=== PATIENT | male | born 1960 | race Caucasian/White ===

== ENCOUNTER → 2018-06-05 | Day surgery (SDC) | payer OTHER ==
[~2018-06-05] MED LIST: Lactated Ringers 1,000 ML IV SCH; Propofol 200 MG/20 ML SDV IV ONE
[2018-06-05 12:22] VITALS: BP 136/81
--- NOTE | 2018-06-05 14:49 | OR ---
DATE OF OPERATION: 06/05/2018 PREOPERATIVE DIAGNOSIS: 1. MELENA. 2. EPIGASTRIC PAIN. POSTOPERATIVE DIAGNOSIS: 1. MELENA. 2. EPIGASTRIC PAIN. SURGEON: Joaquin Lujan MD PROCEDURE: 1. EGD WITH BIOPSIES X4, RAYMOND. 2. FULL-LENGTH COLONOSCOPY. ANESTHESIA: SCAFFOLD SETTER due to GERD. COMPLICATIONS: None. SPECIMEN: 1. Antral biopsy x2. 2. Distal esophageal biopsy x2. 3. Antral RAYMOND. FINDINGS: 1. Full-length EGD. 2. [id number] antral gastritis. 3. GERD with Whitlock's esophagus. 4. Full-length colonoscopy. 5. Mild sigmoid diverticulosis. RECOMMENDATIONS: The patient will be placed on appropriate proton pump therapy and we will have close followup after path reports are back. INDICATIONS: The patient presented to my office with complaints of melenic stools at times and epigastric pain. He does occasionally have bright red blood per rectum, so we elected to proceed with both upper and lower endoscopy. DESCRIPTION OF PROCEDURE: The patient was prepped and draped, placed in the left lateral decubitus position. A lubricated Olympus gastroscope was inserted over a bit and easily intubated in the esophagus. The esophageal lining was benign until its most distal portion. The Z-line was crisp around 39 cm. There was no gross hernia present, but there was spontaneous GERD, and there was one short segment of Whitlock's documented with pictures. We did two biopsies of the leading edge of this. The scope was advanced into the stomach, through the pylorus into the second portion of duodenum. This and the duodenal bulb were benign. The scope was brought back into the stomach and retroflexed. The upper fundus and cardia were unremarkable. Upon straightening, the patient had diffuse antral gastritis without any ulceration or erosion. Two biopsies were taken along with a RAYMOND. Air was then suctioned from the stomach and the scope was removed without complication. A lubricated Olympus colonoscope was then inserted and with relative ease advanced to the cecum. We were able to directly visualize the ileocecal valve and appendiceal orifice. The bowel prep was adequate. Upon withdrawal of the scope, the cecum, ascending and transverse colons were completely benign. No signs of any lesions in the descending colon. In the sigmoid area, the patient had some very mild diverticular disease at the mid to distal portion of the sigmoid and into the rectosigmoid junction, without any inflammatory changes. Throughout the entire colon, I could find no signs of any polyps, mass, ulceration, or bleeding sites. No vascular abnormalities or signs of colitis. The rectal vault appeared benign. Upon retroflexion, the patient had prominent internal vascular tissue, but no active bleeding. Air was then suctioned, scope removed without complication. ELYSSA/CRYSTAL /[id number]
== END ==
LOC: CC.SDS 10:12
PROVIDERS: ATTEND Family Medicine
DX: K29.71 Gastritis, unspecified, with bleeding (principal); K21.9 Gastro-esophageal reflux disease without esophagitis; K22.70 Barrett's esophagus without dysplasia; K57.31 Diverticulosis of large intestine without perforation or abscess with bleeding
CPT/HCPCS: 43239; 45378; 87081; J2704; J7120

== ENCOUNTER 2019-05-12 17:05 | Emergency (ER) | payer OTHER ==
[2019-05-12] MEDS ORDERED: predniSONE 20 MG Tab PO ONE (17:06)
[2019-05-12] MEDS ORDERED: Ketorolac 10 MG Tab PO ONE (17:06)
--- NOTE | 2019-05-12 17:33 | EDM.PDOC ---
ED HPI GENERAL MEDICAL PROBLEM - General Chief Complaint: General Stated Complaint: back/right leg pain Time Seen by Provider: 05/12/19 17:20 Source of Information: Reports: Patient History Limitations: Reports: No Limitations - History of Present Illness INITIAL COMMENTS - FREE TEXT/NARRATIVE: in with c/o right lower back, right ant thigh pain and anxiety, pts back and leg problems started last night, no injury or trauma, feels like he has cramping in his muscles and the anxiety started this afternoon, no cp, pressure or heaviness, no palpitation or irregular heart beats, no calf pain, redness or swelling, no abd pain, no nv, no fever or chills Onset: Gradual Duration: Day(s): (as above) Location: Reports: Lower Extremity, Right Quality: Reports: Ache (cramping) Severity: Moderate Improves with: Reports: None Worsens with: Reports: None 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 - Related Data Allergies Allergy/AdvReac Type Severity Reaction Status Date / Time No Known Allergies Allergy Verified 06/05/18 10:28 Home Meds: Home Meds Carboxymethylcellulos/Glycerin [Lubricant 0.5-0.9% Eye Drops] 1 drop OP DAILY [History] Pantoprazole [ProTONIX] 40 mg PO DAILY 06/05/18 [History] Saw/Vit E/Sod Maria A/Lyc/Beta/Pyg [Prostate Health Caplet] 2 tab PO DAILY 06/05/18 [History] Ketorolac [Toradol] 10 mg PO TID PRN 5 Days #12 tab 05/12/19 [Rx] predniSONE [Prednisone] 50 mg PO DAILY 5 Days #5 tablet 05/12/19 [Rx] Past Medical History - Past Health History Medical/Surgical History: Denies Medical/Surgical History Social & Family History - Family History Cardiac: Reports: Hypertension - Alcohol Use Alcohol Use History: Yes Alcohol Use Frequency: Rarely - Living Situation & Occupation Occupation: Employed ED ROS GENERAL - Review of Systems Review Of Systems: See Below Constitutional: Denies: Fever, Chills HEENT: Reports: No Symptoms Respiratory: Reports: No Symptoms. Denies: Shortness of Breath Cardiovascular: Reports: No Symptoms. Denies: Chest Pain, Edema, Lightheadedness, Palpitations, Syncope GI/Abdominal: Reports: No Symptoms. Denies: Abdominal Pain, Nausea, Vomiting : Reports: No Symptoms Musculoskeletal: Reports: Muscle Pain (as above). Denies: Neck Pain, Shoulder Pain, Back Pain Skin: Reports: No Symptoms. Denies: Bruising, Rash, Erythema Neurological: Reports: No Symptoms. Denies: Confusion, Dizziness, Headache, Numbness, Tingling, Trouble Speaking, Difficulty Walking, Weakness, Change in Speech, Gait Disturbance Psychiatric: Reports: Anxiety ED EXAM, GENERAL - Physical Exam Exam: See Below Exam Limited By: No Limitations General Appearance: Alert, WD/WN, Anxious Ears: Normal External Exam Nose: Normal Inspection Throat/Mouth: Normal Inspection, Normal Voice, No Airway Compromise Head: Atraumatic, Normocephalic Neck: Normal Inspection, Supple, Non-Tender, Full Range of Motion Respiratory/Chest: No Respiratory Distress, Lungs Clear, Normal Breath Sounds, Chest Non-Tender Cardiovascular: Normal Peripheral Pulses, Regular Rate, Rhythm, No Murmur Peripheral Pulses: 2+: Radial (L) GI/Abdominal: Soft, Non-Tender Back Exam: Normal Inspection, Full Range of Motion, Other (pain over the right sciatica area with palpation ). No: CVA Tenderness (L), CVA Tenderness (R), Decreased Range of Motion, Muscle Spasm, Paraspinal Tenderness, Vertebral Tenderness Extremities: Normal Inspection, Normal Range of Motion, No Pedal Edema, Normal Capillary Refill, Other (ant thigh tenderness with palpation ). No: Redness Neurological: Alert, Oriented, Normal Cognition, Normal Gait, No Motor/Sensory Deficits Psychiatric: Normal Mood, Anxious Skin Exam: Warm, Intact, Normal Color, No Rash. No: Ecchymosis, Erythema Course - Vital Signs Text/Narrative:: the pt was given ativan 1mg IM, the pt was reassessed and is feeling much better , I suspect the pt has sciatica and anxiety, the pt dangelo be given Toradol 10mg tid prn and prednisone 50mg qd x 5 days, will f/u with pcp next week Last Recorded V/S: Last Vital Signs Temp 36.1 C 05/12/19 17:22 Pulse 88 05/12/19 18:57 Resp 18 05/12/19 18:57 BP 154/85 H 05/12/19 18:57 Pulse Ox 97 05/12/19 18:57 - Orders/Labs/Meds Meds: Medications Discontinued Medications Generic Name Dose Route Start Last Admin Trade Name Freq PRN Reason Stop Dose Admin Ketorolac Tromethamine 2 packet 05/12/19 18:52 Take Home: Ketorolac 10 Mg, 4 Tab Pack PO 05/12/19 18:53 ONETIME ONE Lorazepam 1 mg 05/12/19 17:26 05/12/19 18:08 Ativan IM 05/12/19 17:27 1 mg ONETIME ONE Administration Prednisone 2 packet 05/12/19 18:52 Take Home: Prednisone 20 Mg, 2 Tab Pack PO 05/12/19 18:53 ONETIME ONE Departure - Departure Time of Disposition: 18:47 Disposition: Home, Self-Care 01 Condition: Good Clinical Impression: Anxiety, Right sided sciatica - Discharge Information *PRESCRIPTION DRUG MONITORING PROGRAM REVIEWED*: Not Applicable *COPY OF PRESCRIPTION DRUG MONITORING REPORT IN PATIENT AURELIO: Not Applicable Prescriptions: Ketorolac [Toradol] 10 mg PO TID PRN 5 Days #12 tab PRN Reason: Pain (Moderate 4-6) predniSONE [Prednisone] 50 mg PO DAILY 5 Days #5 tablet Instructions: Generalized Anxiety Disorder, Adult, Sciatica, [id number] Referrals: Joaquin Lujan MD [Primary Care Provider] - Forms: ED Department Discharge Additional Instructions: rest increase fluids Toradol 10mg 3 x a day as needed for pain prednisone 50mg 1 x a day for 5 days follow up with your family doctor this week, call Friday for an appointment time return to ER sooner if worse or problems - Problem List & Annotations (1) Anxiety SNOMED Code(s): 51278898 Code(s): F41.9 - ANXIETY DISORDER, UNSPECIFIED Status: Acute Priority: Medium Current Visit: Yes (2) Right sided sciatica SNOMED Code(s): 90899882 Code(s): M54.31 - SCIATICA, RIGHT SIDE Status: Acute Priority: Medium Current Visit: Yes - Problem List Review Problem List Initiated/Reviewed/Updated: Yes - Assessment/Plan Plan: as above
[2019-05-12] MEDS: LORazepam 2 MG/ML Syringe IM ONE (18:08)
[2019-05-12 18:58] VITALS: BP 154/85; PULSE 88
[2019-05-12] MEDS: Take Home: Ketorolac 10 MG Tab, 4 Tab Pack PO ONE (19:14)
[2019-05-12] MEDS: Take Home: predniSONE 20 MG, 2 Tab Pack PO ONE (19:14)
== END 2019-05-12 19:05 | disposition home or self-care (01) ==
LOC: CC.ED 17:05
DX: M54.41 Lumbago with sciatica, right side (principal); F41.9 Anxiety disorder, unspecified
CPT/HCPCS: 96372; 99283; A9270; J2060

== ENCOUNTER 2020-02-15 02:18 | Emergency (ER) | payer OTHER ==
[2020-02-15] MEDS ORDERED: Ketorolac 60 MG/2 ML SDV IM ONE (02:27)
[2020-02-15 02:32] VITALS: BP 139/85; PULSE 79
--- NOTE | 2020-02-15 02:55 | EDM.PDOC ---
ED HPI GENERAL MEDICAL PROBLEM - General Chief Complaint: Back Pain or Injury Stated Complaint: BACK PAIN Time Seen by Provider: 02/15/20 02:48 Source of Information: Reports: Patient History Limitations: Reports: No Limitations - History of Present Illness INITIAL COMMENTS - FREE TEXT/NARRATIVE: Barney Michael is a 59 yo male who presents to the ED with c/o right sided low back pain. Reports it radiates around to front side. Does not radiate down his leg. Denies any numbness or tingling. No loss of bowel/bladder. No dysuria, hematuria, or flank pain. No injury to area. He is able to ambulate, but is slow and cautious with movements. Reports he had same thing back in April. Did do PT for it. He reports pain started Friday and has worsened since. He has been taking 400 mg ibuprofen for it without relief. Reports he went to the chiropractor earlier today, felt like pain was improving, but pain has now worsened since and got to a point where he couldn't tolerate it tonight. Rates pain 9/10 at rest and 10/10 with movement. 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 Lower Back Pain Score (Numeric/FACES): 9 - Related Data Allergies Allergy/AdvReac Type Severity Reaction Status Date / Time lactose Allergy Abdominal Verified 02/15/20 02:20 Pain Home Meds: Home Meds Ibuprofen 400 mg PO ASDIRECTED PRN 05/12/19 [History] Cyclobenzaprine [Flexeril] 10 mg PO TID PRN #20 tab 02/15/20 [Rx] Ketorolac [Toradol] 10 mg PO Q6H PRN #20 tab 02/15/20 [Rx] predniSONE [Prednisone] 40 mg PO DAILY 5 Days #10 tablet 02/15/20 [Rx] Past Medical History - Past Health History Medical/Surgical History: Denies Medical/Surgical History Musculoskeletal History: Reports: Back Pain, Chronic - Past Surgical History Musculoskeletal Surgical History: Reports: None Social & Family History - Family History Family Medical History: Noncontributory Cardiac: Reports: Hypertension - Caffeine Use Caffeine Use: Reports: None - Living Situation & Occupation Occupation: Employed ED ROS GENERAL - Review of Systems Review Of Systems: Comprehensive ROS is negative, except as noted in HPI. ED EXAM,LOWER BACK PAIN/INJURY - Physical Exam Exam: See Below Exam Limited By: No Limitations General Appearance: Alert, WD/WN, Mild Distress Back Exam: Decreased Range of Motion (decreased flexion & R) & L) rotation lumbar spine), Muscle Spasm (paraspinal muscles, lumbar spine). No: CVA Tenderness (L), CVA Tenderness (R), Paraspinal Tenderness, Vertebral Tenderness Extremities: Normal Inspection, Normal Range of Motion, Non-Tender, No Pedal Edema, Normal Capillary Refill Neurological: Alert, Normal Mood/Affect, Normal Dorsiflexion, CN II-XII Intact, Normal Plantar Flexion, Normal Gait (slow cautious gait), Normal Reflexes, No Motor/Sensory Deficits, Oriented x 3. No: Straight Leg Raise (L), Straight Leg Raise (R) Psychiatric: Anxious Skin Exam: Warm, Dry, Intact, Normal Color, No Rash Course - Vital Signs Last Recorded V/S: Last Vital Signs Temp 98.1 F 02/15/20 02:20 Pulse 79 02/15/20 02:20 Resp 16 02/15/20 02:20 BP 139/85 02/15/20 02:20 Pulse Ox 98 02/15/20 02:20 - Orders/Labs/Meds Meds: Medications Discontinued Medications Generic Name Dose Route Start Last Admin Trade Name Freq PRN Reason Stop Dose Admin Ketorolac Tromethamine 60 mg 02/15/20 02:27 02/15/20 02:38 Toradol IM 02/15/20 02:28 60 mg ONETIME ONE Administration Orphenadrine Citrate 60 mg 02/15/20 02:27 02/15/20 02:40 Norflex IM 02/15/20 02:28 60 mg ONETIME ONE Administration Departure - Departure Time of Disposition: 03:25 Disposition: Home, Self-Care 01 Condition: Good Clinical Impression: Right sided sciatica - Discharge Information *PRESCRIPTION DRUG MONITORING PROGRAM REVIEWED*: Not Applicable *COPY OF PRESCRIPTION DRUG MONITORING REPORT IN PATIENT AURELIO: Not Applicable Prescriptions: Cyclobenzaprine [Flexeril] 10 mg PO TID PRN #20 tab PRN Reason: Pain predniSONE [Prednisone] 40 mg PO DAILY 5 Days #10 tablet Ketorolac [Toradol] 10 mg PO Q6H PRN #20 tab PRN Reason: Pain Instructions: Sciatica, [id number] Referrals: PCP,None [Primary Care Provider] - Forms: ED Department Discharge Additional Instructions: - Toradol 1 tablet every 6 hours as needed for pain - Flexeril 1 tablet every 8 hours as needed for pain (muscle relaxer). This med may make you sleepy - Prednisone 40 mg daily x 5 days - Ice/heat to affected area as needed - Continue stretches - PT if no improvement - Follow up with PCP for recheck if symptoms worsen or do not seem to be improving - Return to ED for emergent needs Sepsis Event Note (ED) - Evaluation Sepsis Screening Result: No Definite Risk - Problem List & Annotations (1) Right sided sciatica SNOMED Code(s): 19819679 Code(s): M54.31 - SCIATICA, RIGHT SIDE Status: Acute Priority: Medium - Assessment/Plan Assessment:: Right Sided Sciatica Plan: 59 yo male presents to ED with significant back pain. Did have similiar issue back in April, that improved with meds and PT. Reports pain has been worsening since Friday. Did try chiropractor, which provided relief initially, but has worsened overnight. Presented with c/o 10/10 right sided low back pain. Was given 60 mg IM Norflex and 60 mg IM toradol. After approximately 30 minutes, patient reported improvement in pain. At time of discharge, pain improved to 2/1 0. He was ambulating without difficulty. He is sent home with PO home medications, Toradol, Flexeril, and prednisone. Is advised to follow up with his PCP for recheck if symptoms worsen or do not seem to be improving. Patient discharged in satisfactory condition.
== END 2020-02-15 03:25 | disposition home or self-care (01) ==
LOC: CC.ED 02:18
DX: M54.41 Lumbago with sciatica, right side (principal); Z91.011 Allergy to milk products
CPT/HCPCS: 96372; 99283; J1885; J2360

== ENCOUNTER 2020-08-18 15:01 | Emergency (ER) | payer OTHER ==
--- NOTE | 2020-08-18 15:53 | EDM.PDOC ---
ED HPI GENERAL MEDICAL PROBLEM - General Chief Complaint: Abdominal Pain Stated Complaint: abdominal pain Time Seen by Provider: 08/18/20 15:11 Source of Information: Reports: Patient History Limitations: Reports: No Limitations - History of Present Illness INITIAL COMMENTS - FREE TEXT/NARRATIVE: This patient is a 60 year old male that presents to the ER. Patient reports that started at about noon today with right abdominal pain and right lower back pain. Patient reports having nausea, vomiting, and diarrhea today. Patient reports starting ans stopping of urine stream last night. Patient denies singh, neck pain, chest pain, shortness of breath, fever, testicle pain, penile pain. Patient reports after RN inserted saline lock, his pain completely resolved. He thought he was given something for pain, I informed him he was not. Onset: Today Onset Date: 08/18/20 Onset Time: 12:00 Location: Reports: Abdomen, Back Quality: Reports: Sharp Severity: Mild Improves with: Reports: None Worsens with: Reports: None Associated Symptoms: Reports: Diaphoresis, Nausea/Vomiting. Denies: Confusion, Chest Pain, Cough, cough w sputum, Fever/Chills, Headaches, Loss of Appetite, Malaise, Rash, Seizure, Shortness of Breath, Syncope, Weakness Right Lower Abdominal Pain Score (Numeric/FACES): 6 - Related Data Allergies Allergy/AdvReac Type Severity Reaction Status Date / Time lactose Allergy Abdominal Verified 08/18/20 15:06 Pain Home Meds: Home Meds Ibuprofen 400 mg PO ASDIRECTED PRN 05/12/19 [History] Ketorolac [Toradol] 10 mg PO Q6H PRN #20 tab 08/18/20 [Rx] Lifitegrast [Xiidra] 1 drop EYEBOTH BID 08/18/20 [History] Ondansetron [Zofran ODT] 4 mg PO Q6H PRN #12 tab.dis 08/18/20 [Rx] Tamsulosin HCl [Flomax] 0.4 mg PO DAILY #7 cap.er.24h 08/18/20 [Rx] Past Medical History - Past Health History Medical/Surgical History: Denies Medical/Surgical History Musculoskeletal History: Reports: Back Pain, Chronic - Infectious Disease History Infectious Disease History: Reports: None - Past Surgical History GI Surgical History: Reports: Colonoscopy Musculoskeletal Surgical History: Reports: None Social & Family History - Family History Family Medical History: No Pertinent Family History Cardiac: Reports: Hypertension - Tobacco Use Tobacco Use Status *Q: Never Tobacco User - Caffeine Use Caffeine Use: Reports: Coffee, Soda - Recreational Drug Use Recreational Drug Use: No - Living Situation & Occupation Occupation: Employed ED ROS GENERAL - Review of Systems Review Of Systems: See Below Constitutional: Reports: Diaphoresis. Denies: Fever, Chills, Malaise, Weakness, Fatigue HEENT: Reports: No Symptoms Respiratory: Reports: No Symptoms Cardiovascular: Reports: No Symptoms Endocrine: Reports: No Symptoms GI/Abdominal: Reports: Abdominal Pain, Diarrhea, Nausea, Vomiting. Denies: Constipation : Reports: Other (starting and stopping of urinary stream. Right flank pain) Musculoskeletal: Reports: No Symptoms Skin: Reports: No Symptoms Neurological: Reports: No Symptoms Psychiatric: Reports: No Symptoms Hematologic/Lymphatic: Reports: No Symptoms ED EXAM, GI/ABD - Physical Exam Exam: See Below Exam Limited By: No Limitations General Appearance: Alert, WD/WN, No Apparent Distress Eyes: Bilateral: Normal Appearance Ears: Normal External Exam, Normal Canal, Hearing Grossly Normal, Normal TMs Nose: Normal Inspection, Normal Mucosa, No Blood Throat/Mouth: Normal Inspection, Normal Lips, Normal Teeth, Normal Gums, Normal Oropharynx, Normal Voice, No Airway Compromise Head: Atraumatic, Normocephalic Neck: Normal Inspection, Supple, Non-Tender, Full Range of Motion Respiratory/Chest: No Respiratory Distress, Lungs Clear, Normal Breath Sounds, No Accessory Muscle Use, Chest Non-Tender Cardiovascular: Normal Peripheral Pulses, Regular Rate, Rhythm, No Edema, No Gallop, No JVD, No Murmur, No Rub GI/Abdominal Exam: Normal Bowel Sounds, Soft, Non-Tender, No Organomegaly, No Distention, No Abnormal Bruit, No Mass, Pelvis Stable (Male) Exam: Deferred Rectal (Males) Exam: Deferred Back Exam: Normal Inspection, Full Range of Motion. No: CVA Tenderness (L), CVA Tenderness (R) Extremities: Normal Inspection, Normal Range of Motion, Non-Tender, No Pedal Edema, Normal Capillary Refill Neurological: Alert, Oriented, Normal Cognition, Normal Gait, No Motor/Sensory Deficits Psychiatric: Normal Affect, Normal Mood Skin Exam: Warm, Dry, Intact, Normal Color, No Rash Lymphatic: No Adenopathy Course - Vital Signs Last Recorded V/S: Last Vital Signs Temp 99.8 F 08/18/20 17:21 Pulse 93 08/18/20 17:21 Resp 20 08/18/20 17:21 BP 150/88 H 08/18/20 17:21 Pulse Ox 97 08/18/20 17:21 - Orders/Labs/Meds Orders: Active Orders 24 hr Category Date Time Status Abdomen Pelvis wo Cont [CT] Stat Exams 08/18/20 16:47 Taken Labs: Laboratory Tests 08/18/20 08/18/20 08/18/20 Range/Units 15:49 16:00 16:00 WBC 8.1 (5.0-10.0) 10^3/uL RBC 5.31 (4.50-6.00) 10^6/uL Hgb 16.2 (14.0-18.0) g/dL Hct 46.2 (40.0-54.0) % MCV 87.0 (82.0-94.0) fL MCH 30.5 (27.0-32.0) pg MCHC 35.1 (33.0-38.0) g/dL RDW Coeff of Jose 13.0 (11.0-15.0) % Plt Count 243 (150-400) 10^3/uL Neut % (Auto) 75.3 (35-85) % Lymph % (Auto) 15.3 (10-55) % Vilas % (Auto) 8.6 (0-16) % Eos % (Auto) 0.6 (0-5) % Baso % (Auto) 0.2 (0-3) % Neut # (Auto) 6.09 (1.80-7.00) 10^3/uL Lymph # (Auto) 1.24 (1.00-4.80) 10^3/uL Vilas # (Auto) 0.70 (0.00-0.80) 10^3/uL Eos # (Auto) 0.05 (0.00-0.45) 10^3/uL Baso # (Auto) 0.02 10^3/uL Sodium 144 (136-145) mEq/L Potassium 4.1 (3.5-5.0) mEq/L Chloride 104 (98-106) mEq/L Carbon Dioxide 30 (21-32) mmol/L BUN 21 H (7-18) mg/dL Creatinine 1.5 H (0.7-1.3) mg/dL Est Cr Clr Drug Dosing 51.93 mL/min Estimated GFR (MDRD) 48 L (>=60) mL/min Glucose 155 H D (75-99) mg/dL Calcium 9.2 (8.4-10.1) mg/dL Total Bilirubin 1.1 H (0.0-1.0) mg/dL AST 16 (15-37) U/L ALT 29 (12-78) U/L Alkaline Phosphatase 85 (46-116) U/L Lactate Dehydrogenase 158 (100-190) U/L Creatine Kinase 120 (35-232) U/L Troponin I < 0.017 (0.00-0.06) ng/mL C-Reactive Protein < 0.2 L (0.2-0.8) mg/dL Total Protein 7.8 (6.4-8.2) g/dL Albumin 4.3 (3.4-5.0) g/dL Amylase 60 (25-115) U/L Lipase 87 (73-393) U/L Urine Color Yellow (YELLOW) Urine Appearance Clear (CLEAR) Urine pH 5.5 (4.5-8.0) Ur Specific [place] >= 1.030 H (1.003-1.020) Urine Protein 30 H (NEGATIVE) mg/dL Urine Glucose (UA) Negative (NEGATIVE) mg/dL Urine Ketones Negative (NEGATIVE) mg/dL Urine Occult Blood Large H (NEGATIVE) Urine Nitrite Negative (NEGATIVE) Urine Bilirubin Negative (NEGATIVE) Urine Urobilinogen 0.2 (0.2-1.0) EU/dL Ur Leukocyte Esterase Negative (NEGATIVE) Urine RBC 30-40 H (0-5) /HPF Urine WBC Not seen (0-5) /HPF Urine Mucus Few H (NOT SEEN) /HPF Meds: Medications Discontinued Medications Generic Name Dose Route Start Last Admin Trade Name Freq PRN Reason Stop Dose Admin Hydromorphone HCl 1 mg 08/18/20 17:39 08/18/20 17:46 Dilaudid IVPUSH 08/18/20 17:40 1 mg ONETIME ONE Administration Sodium Chloride 1,000 mls @ 1,000 mls/hr 08/18/20 16:46 08/18/20 16:51 Normal Saline IV 08/18/20 17:45 1,000 mls/hr .BOLUS ONE Administration Ketorolac Tromethamine 30 mg 08/18/20 18:23 08/18/20 18:50 Toradol IVPUSH 08/18/20 18:24 30 mg ONETIME ONE Administration Ketorolac Tromethamine 1 packet 08/18/20 18:44 Take Home: Ketorolac 10 Mg, 4 Tab Pack PO 08/18/20 18:45 ONETIME ONE Morphine Sulfate 4 mg 08/18/20 16:46 08/18/20 16:52 Morphine IVPUSH 08/18/20 16:47 4 mg ONETIME ONE Administration Ondansetron HCl 4 mg 08/18/20 16:46 08/18/20 16:54 Zofran IVPUSH 08/18/20 16:47 4 mg NOW STA Administration Ondansetron HCl 4 mg 08/18/20 17:39 08/18/20 17:44 Zofran IVPUSH 08/18/20 17:40 4 mg NOW STA Administration Ondansetron HCl 1 packet 08/18/20 18:44 Take Home: Ondansetron Odt 4 Mg, 2 Tab Pack PO 08/18/20 18:45 ONETIME ONE Oxycodone/Acetaminophen 3 packet 08/18/20 18:44 Take Home: Acetaminophen/Oxycodon, 2 Tab Pack PO 08/18/20 18:45 ONETIME ONE Tamsulosin HCl 0.4 mg 08/18/20 18:23 08/18/20 18:50 Flomax PO 08/18/20 18:24 0.4 mg ONETIME ONE Administration - Radiology Interpretation Free Text/Narrative:: CT abd/Pelvis without contrast: obstructing 5mm stone in hte right proximal ureter with minimal right hydronephrosis. CT Results Date: 08/18/20 CT Results Time: 17:40 - Re-Assessments/Exams Free Text/Narrative Re-Assessment/Exam: 08/18/20 16:40 Patient now reports 10/10 pain to the right flank. Medications ordered. Reviewed labs, will renal stone protocol. 08/18/20 17:45 Patient reported his pain had improved after previous medication, was 2/10, but now is 10/10 again. More pain medication ordered. 08/18/20 18:36 I called and spoke to [facility] to see if has urology director of slot operations per patient request for that facility. He reports they had a nice commercial for urology that he saw on the TV. They did not have urology director of slot operations, so I called [facility] per his 2nd request. I spoke to urologist Dr. Crabtree. He reports to give the patient Toradol, Flomax, and discharge home. Patient may pass on home, will give patient that chance to do so. Patient agrees with this treatment plan. Patient educated when to return to the ER. Patient will see urology in 1 week. Departure - Departure Time of Disposition: 18:39 Disposition: Home, Self-Care 01 Condition: Fair Clinical Impression: Ureteral stone with hydronephrosis - Discharge Information *PRESCRIPTION DRUG MONITORING PROGRAM REVIEWED*: Yes *COPY OF PRESCRIPTION DRUG MONITORING REPORT IN PATIENT AURELIO: Yes Prescriptions: Tamsulosin HCl [Flomax] 0.4 mg PO DAILY #7 cap.er.24h Ketorolac [Toradol] 10 mg PO Q6H PRN #20 tab PRN Reason: Pain Ondansetron [Zofran ODT] 4 mg PO Q6H PRN #12 tab.dis PRN Reason: Nausea/Vomiting Instructions: Kidney Stones, [id number], Hydronephrosis, Pain Medicine Instructions, [id number] Referrals: PCP,Unknown [Primary Care Provider] - Forms: ED Department Discharge Additional Instructions: Please followup with urology: You choice [facility] or [facility]: I spoke to Dr. Joya Urologist at [facility]: Please call Friday for appointment to be seen in 1 week. Please return to the ER for worsening of pain, fever, vomiting, or other concerns Increase water intake Strain your urine Percocet 5/325m1 1-2 pills every 4-6 hours as needed for pain #20 no refill, #6 take home Flomax 0.4mg 1 pill once a day #7 no refill Zofran 4mg 1 pill under the tongue every 6 hours as needed for nausea/vomiting #12 no refill, #2 take home Toradol 10mg 1 pill every 6 hours as needed for pain #20, #4 take home Prescriptions Sent to [facility] [place]: Open Friday 9am-12pm Sepsis Event Note (ED) - Evaluation Sepsis Screening Result: No Definite Risk - Focused Exam Vital Signs: Vital Signs Temp Pulse Resp BP Pulse Ox 08/18/20 17:21 99.8 F 93 20 150/88 H 97 08/18/20 16:31 97.9 F 83 16 136/92 H 97 08/18/20 15:02 97.3 F 82 16 170/102 H 97 - My Orders Last 24 Hours: My Active Orders 08/18/20 16:47 Abdomen Pelvis wo Cont [CT] Stat - Assessment/Plan Last 24 Hours: My Active Orders 08/18/20 16:47 Abdomen Pelvis wo Cont [CT] Stat Plan: PLEASE SEE RN NOTE FOR PFSH
[2020-08-18 16:17] LABS: CHLORIDE,CL 104 mEq/L (98-106); SODIUM,NA 144 mEq/L (136-145)
[2020-08-18] MEDS ORDERED: Morphine 4 MG/ML VIAL IVPUSH ONE (16:46)
[2020-08-18] MEDS ORDERED: Sodium Chloride 0.9% 1,000 ML IV ONE (16:46)
[2020-08-18] MEDS ORDERED: Ondansetron 4 MG/2 ML SDV IVPUSH STA ×2 (16:46→17:39)
[2020-08-18 17:22] VITALS: BP 150/88; PULSE 93
[2020-08-18] MEDS ORDERED: HYDROmorphone 1 MG/ML Syringe IVPUSH ONE (17:39)
[2020-08-18] MEDS ORDERED: Tamsulosin 0.4 MG Cap.ER PO ONE (18:23)
[2020-08-18] MEDS ORDERED: Ketorolac 30 MG/ML SDV IVPUSH ONE (18:23)
[2020-08-18] MEDS ORDERED: Take Home: Acetaminophen/oxyCODONE 325-5 MG, 2 Tab Pack PO ONE (18:44)
[2020-08-18] MEDS ORDERED: Take Home: Ketorolac 10 MG Tab, 4 Tab Pack PO ONE (18:44)
[2020-08-18] MEDS ORDERED: Take Home: Ondansetron 4 MG Tab.DIS, 2 Tab Pack PO ONE (18:44)
[2020-08-18] MEDS ORDERED: Ondansetron 4 MG Tab.DIS ONE (18:50)
[2020-08-18] MEDS ORDERED: Acetaminophen/oxyCODONE 325-5 MG Tab ONE (18:50)
[2020-08-18] MEDS ORDERED: Ketorolac 10 MG Tab ONE (18:50)
== END 2020-08-18 19:14 | disposition home or self-care (01) ==
LOC: CC.ED 15:01
DX: N13.2 Hydronephrosis with renal and ureteral calculous obstruction (principal); Z91.048 Other nonmedicinal substance allergy status; Z79.899 Other long term (current) drug therapy
CPT/HCPCS: 36415; 74176; 80053; 81001; 82150; 82550; 83615; 83690; 84484; 85025; 86140; 93005; 96374; 96375; 96376; 99284-25; A9270-GY; J1170; J1885; J2270; J2405; J7030

== ENCOUNTER → 2021-01-05 | Day surgery (SDC) | payer OTHER ==
[~2021-01-05] MED LIST changes: -Propofol 200 MG/20 ML SDV IV ONE; +Propofol 200 MG/20 ML SDV ONE; +fentaNYL 100 MCG/2 ML SDV ONE
[2021-01-05 09:36] VITALS: BP 104/75; PULSE 68
--- NOTE | 2021-01-10 16:12 | OR ---
DATE OF OPERATION: 01/05/2021 PREOPERATIVE DIAGNOSIS: HISTORY OF TORRES'S. POSTOPERATIVE DIAGNOSIS: HISTORY OF TORRES'S. SURGEON: Joaquin Lujan MD PROCEDURE: SURVEILLANCE ESOPHAGOGASTRODUODENOSCOPY WITH BIOPSIES X4, RAYMOND. ANESTHESIA: MAC. COMPLICATIONS: None. SPECIMEN: 1. Antral RAYMOND. 2. Fundal biopsy x1. 3. Distal esophageal biopsy x3. FINDINGS: 1. Full-length diagnostic EGD. 2. Small erosion, mid fundus. 3. Spontaneous GERD. 4. Short-segment Torres's esophagus. RECOMMENDATIONS: Followup EGD in 2 years pending path reports for surveillance. INDICATIONS: The patient has a prior EGD in 2018. He is overdue for a surveillance EGD for his Torres's esophagus. DESCRIPTION OF PROCEDURE: The patient was prepped and draped, placed in the left lateral decubitus position. A lubricated Olympus gastroscope was inserted over a bit, advanced to cricopharyngeus area, and easily intubated into the esophagus. The esophageal lining was benign until its most distal portion. The Z-line was crisp around 38 cm. There were 2 small short-segment Torres's areas, one was biopsied twice, the other one once. No other erosions, ulcerations, or stricturing. The scope was advanced into the stomach, through the pylorus, and into the second portion of the duodenum. This and the duodenal bulb were benign. The scope was brought back into the stomach and retroflexed. The upper fundus and cardia were completely benign. In the midportion of the fundus, the patient had a small linear erosion which I biopsied. No other signs of gastritis or inflammatory changes were present. We did do an antral CLOtest. Air was then suctioned and the scope was removed without complication. ELYSSA/CRYSTAL /[id number]
== END ==
LOC: CC.SDS 08:12
PROVIDERS: ATTEND Family Medicine
DX: K29.00 Acute gastritis without bleeding (principal); K21.00 Gastro-esophageal reflux disease with esophagitis, without bleeding; K22.8 Other specified diseases of esophagus; N40.1 Benign prostatic hyperplasia with lower urinary tract symptoms; R35.1 Nocturia
CPT/HCPCS: 00731; 43239; 87081; J2704; J3010; J7120